=== PATIENT | female | born 1990 | race Hispanic/Latino ===

== ENCOUNTER 2019-06-27 23:09 | Observation (INO) | payer MEDICAID, SELFPAY ==
[2019-06-28 00:22] LABS: #Basophils 0.1 thou/uL (0.0-0.2); #Eosinphils 0.6 thou/uL (0.0-0.7); #Lymphocytes 2.9 thou/uL (1.20-3.40); #Monocytes 0.8 thou/uL (0.11-0.59); #Neutrophils 4.7 thou/uL (1.40-6.50); %Eosinophils 6.6 % (0.0-10.0); %Lymphocytes 32.3 % (21.0-51.0); %Monocytes 8.4 % (0.0-10.0); %Neutrophils 51.7 % (42.0-75.0); Hemoglobin 11.1 g/dL (12.0-16.0); Mean Corpuscular HGB CONC 33.8 g/dL (32.0-36.0); Mean Corpuscular Hemoglobin 29.7 pg (27.0-31.0); Mean Corpuscular Volume 87.8 fL (78.0-98.0); Mean Platelet Volume 7.3 fL (7.4-10.4); Platelet Count 252 thou/uL (130-400); RBC Distribution Width 11.4 % (11.5-14.5); Red Blood Cell (RBC) Count 3.73 mill/uL (4.20-5.40)
[2019-06-28] MEDS ORDERED: Ondansetron PF 4 MG/2 ML Vial ONE ×2 (00:43→13:19)
[2019-06-28] MEDS ORDERED: Fentanyl 100 MCG/2 ML VIAL ONE ×3 (00:43→02:39)
[2019-06-28 00:44] LABS: ALT (SGPT) 9 U/L (8-55); AST (SGOT) 9 U/L (5-34); Albumin 4.2 g/dL (3.5-5.0); Alkaline Phosphatase 69 U/L (40-110); Anion Gap 13 mmol/L (10-20); BUN (Urea Nitrogen) 11 mg/dL (7.0-18.7); Bilirubin, Total 0.3 mg/dL (0.2-1.2); Calc. Creatinine Clearance 0 mL/min (70-130); Calcium 9.2 mg/dL (7.8-10.44); Carbon Dioxide 24 mmol/L (22-29); Chloride 103 mmol/L (98-107); Estimated GFR-MDRD Greater than 90; Glucose 100 mg/dL (70-105); Lipase 11 U/L (8-78); Potassium 3.6 mmol/L (3.5-5.1); Protein, Total 7.2 g/dL (6.0-8.3); Sodium 136 mmol/L (136-145)
[2019-06-28] MEDS ORDERED: HYDROmorphone 0.5 MG/0.5 ML SYRINGE ONE (01:09)
[2019-06-28] MEDS ORDERED: Promethazine HCl 25 MG/ML VIAL ONE (01:09)
[2019-06-28] MEDS ORDERED: Midazolam HCl 2 mg/2 ml Vial ONE (01:10)
[2019-06-28] MEDS ORDERED: Promethazine HCl 25 MG/ML VIAL IM PRN ×2 (01:58→02:08)
[2019-06-28] MEDS ORDERED: Promethazine HCl 25 MG/ML VIAL SLOW IVP PRN (01:58)
[2019-06-28] MEDS ORDERED: HYDROmorphone 2 MG/ML VIAL SLOW IVP PRN (01:58)
[2019-06-28] MEDS ORDERED: Ondansetron HCl/PF 4 MG/2 ML Vial IVP PRN (01:58)
[2019-06-28] MEDS ORDERED: PACU-Morphine 4MG/ML VIAL SLOW IVP PRN (01:58)
[2019-06-28] MEDS ORDERED: HYDROmorphone 10 mg/100 ml CADD IVPB PRN (02:08)
[2019-06-28] MEDS ORDERED: Ondansetron PF 4 MG/2 ML Vial IVP PRN (02:08)
[2019-06-28] MEDS ORDERED: diphenhydrAMINE 25 MG CAP PO PRN (02:08)
[2019-06-28] MEDS ORDERED: Zolpidem Tartrate 5 MG TAB PO PRN (02:08)
[2019-06-28] MEDS ORDERED: Naloxone HCl 0.4 mg/ml Vial IV PRN (02:08)
[2019-06-28] MEDS ORDERED: diphenhydrAMINE 50 MG/ML VIAL IM PRN (02:08)
[2019-06-28] MEDS ORDERED: diphenhydrAMINE 50 MG/ML VIAL IVP PRN (02:08)
[2019-06-28] MEDS ORDERED: Communication Order-Pharmacy FS SCH (02:15)
--- NOTE | 2019-06-28 05:27 | OP ---
DATE OF PROCEDURE: 06/28/2019 PREOPERATIVE DIAGNOSIS: Suspected ectopic . POSTOPERATIVE DIAGNOSIS: Suspected ectopic with ruptured distal right fallopian tube. SURGEON: Pepe Rizzo MD OUTBOARD MOTOR ASSEMBLER: Tila Le DO, resident physician PROCEDURES: 1. Exploratory laparotomy. 2. Right distal salpingectomy. FINDINGS: 1. 200 to 300 mL hemoperitoneum. 2. Suspected ectopic s/p tubal with hemorrhagic distal right fallopian tube. ANESTHESIA: General endotracheal. ESTIMATED BLOOD LOSS: 300 mL. COMPLICATIONS: None. PROPHYLAXIS: Ancef 2 g IV prior to incision. BRIEF PATIENT DESCRIPTION: Ms. Noe is a 29-year-old G5, reportedly P5 with a last menstrual period, placing her exactly at 7 weeks. She came to the ER complaining of severe abdominal pain. She had been seen in Dr. Hand's office last week and told that no was seen and she was to return for followup. In the interim, she began to experience pain and came to the hospital as described above. Findings here demonstrated a quantitative beta-hCG of over 14,000 with an empty uterus, right adnexal mass, and fluid in the cul-de-sac. Due to the constellation of these findings, decision was made to proceed to surgery. TECHNIQUE IN DETAIL: After informed consent was obtained, the patient was taken to the operating room, where good general endotracheal anesthesia was applied and the patient was prepped and draped in the supine fashion. A transverse incision was made through a pre-existing scar and the abdomen was entered in layers. Upon entry into the peritoneal cavity, a copious amount of blood was seen. This was suctioned out and was approximately 200 to 300 mL in volume. A self-retaining retractor was placed and the bowel was packed away using wet lap packs. At this time, the pelvis was explored. The uterus was upper limits normal size in size, shape, and contour. The left adnexa showed fairly normal tubal anatomy and a normal ovary. On the right side, the ovary was small and the distal fallopian tube was edematous and was bleeding from its terminal end. Material removed from the cul-de-sac did appear to be possibly consistent with chorionic villi. Due to the bleeding from the distal fimbriated end, it was thought that this represented a tubal and as the tube was continuing to bleed, a distal salpingectomy was performed. A clamp was placed across the distal tube. The tube was excised and the tube was secured with 2 Adriana stitches of chromic suture. The pelvis was thoroughly irrigated and was noted to be dry. Wet lap packs and the self-retaining retractor were removed. The omentum was straightened and the fascia was closed with 2 sutures of 0 Vicryl brought laterally to the midline in an alternating running locking fashion. The subcutaneous tissue was thoroughly irrigated and made dry using Bovie coagulation technique. Skin was closed with metal michael. Sponge, lap, and needle counts were correct. The patient tolerated the procedure well and was taken to recovery room in good condition. Job ID: [id number] [facility]
[2019-06-28 05:28] LABS: #Lymphocytes 0.8 thou/uL (1.20-3.40); #Monocytes 0.2 thou/uL (0.11-0.59); #Neutrophils 15.9 thou/uL (1.40-6.50); %Basophils 0.1 % (0.0-1.0); %Eosinophils 0.1 % (0.0-10.0); %Lymphocytes 4.6 % (21.0-51.0); %Neutrophils 94.2 % (42.0-75.0); Hemoglobin 10.7 g/dL (12.0-16.0); Mean Corpuscular HGB CONC 33.8 g/dL (32.0-36.0); Mean Corpuscular Hemoglobin 29.1 pg (27.0-31.0); Mean Corpuscular Volume 86.2 fL (78.0-98.0); Mean Platelet Volume 7.6 fL (7.4-10.4); Platelet Count 241 thou/uL (130-400); RBC Distribution Width 11.3 % (11.5-14.5); Red Blood Cell (RBC) Count 3.66 mill/uL (4.20-5.40); White Blood Cell (WBC) Count 16.9 thou/uL (4.8-10.8)
--- NOTE | 2019-06-28 08:17 | ULT ---
PRELIMINARY REPORT/[facility]/EMERGENCY AFTER HOURS PROCEDURE: Addendum created by Reinier Mcclendon MD on 06/28/2019 1:07 AM Central Time ([place] & [place]) Findings discussed with SharerAlexandria MD at time of interpretation. Initial Report created on 06/28/2019 1:05 AM Central Time ([place] & [place]) PROCEDURE INFORMATION: Exam: US First Trimester, Transabdominal and US , Transvaginal Exam date and time: 06/27/2019 11:41 PM Clinical history: 29 years old, female; Other: Pelvic pain; Gestational age or lmp: 05/09/19; Pregnan t TECHNIQUE: Imaging protocol: Real-time transabdominal obstetrical ultrasound of the maternal pelvis and a first trimester , less than 14 weeks 0 days, with image documentation. Transvaginal imaging was us ed for better evaluation of the fetus and adnexa. COMPARISON: No relevant prior studies available. FINDINGS: GESTATION: Gestation: No visible intrauterine gestation. MATERNAL: Uterus: Endometrial stripe is normal in morphology but thickened at 2 cm in AP dimension. Cervix: Unremarkable. Right adnexa: 5.9 x 2.5 x 4.0 cm right adnexal mass, separate from the right ovary, with internal Doppler vascularity, suspicious for an ectopic . 2 cm corpus luteum cyst of the right ovary. Right ovary otherwise unremarkable with normal Doppler signal. Left adnexa: Left ovary is unremarkable with normal Doppler signal. Intraperitoneal: Moderate volume complex free fluid in the pelvis, suspicious for hemoperitoneum. IMPRESSION: 1. No visible intrauterine gestation. 2. Moderate volume complex free fluid in the pelvis, suspicious for hemoperitoneum. 3. 5.9 x 2.5 x 4.0 cm right adnexal mass, separate from the right ovary, with internal Doppler vascularity, suspicious for an ectopic . Thank you for allowing us to participate in the care of your patient. Dictated and Authenticated by: Reinier Mcclendon MD 06/28/2019 1:05 AM Central Time ([place] & [place]) FINAL REPORT PELVIC ULTRASOUND: Complex fluid in the pelvis suspicious for hemoperitoneum. Right adnexal mass suspicious for ectopic . I am in agreement with the preliminary report. POS: [facility]
[2019-06-28] MEDS ORDERED: Succinylcholine Chloride 20 MG/ML 10 ml SYRINGE FS ONE (13:19)
[2019-06-28] MEDS ORDERED: Dexamethasone 20 MG/5 ML VIAL ONE (13:19)
[2019-06-28] MEDS ORDERED: Lidocaine 1% PF 5 ML VIAL ONE (13:19)
[2019-06-28] MEDS ORDERED: Ketorolac Tromethamine 30 MG/ML VIAL ONE (13:19)
[2019-06-28] MEDS ORDERED: PHENYLEPHRINE-NS 100 MCG/ML 10 ML SYRINGE ONE (13:19)
[2019-06-28] MEDS ORDERED: PROPOFOL 200 MG/20 ML VIAL ONE (13:19)
[2019-06-28] MEDS: Ketorolac Tromethamine 30 MG/ML VIAL IVP SCH ×2 (17:27→19:23)
[2019-06-28] MEDS: Simethicone Chewable 80 MG TAB PO PRN (19:32)
[2019-06-28 19:40] VITALS: BMI 32.1
[2019-06-29] MEDS: Ketorolac Tromethamine 30 MG/ML VIAL IVP SCH (02:08)
[2019-06-29] MEDS ORDERED: HYDROcodone/Acetaminophen 5/325 mg Tablet PO PRN ×2 (08:33)
[2019-06-29] MEDS ORDERED: traMADol HCl 50 MG TAB PO PRN (08:35)
[2019-06-29] MEDS ORDERED: FLU VACC QS2019-20(6MOS UP)/PF 60 MCG/0.5 ML SYRINGE IM ONE (09:00)
--- NOTE | 2019-06-29 10:01 | PRG ---
DATE OF SERVICE: 06/29/2019 SUBJECTIVE: The patient is postoperative day 1, status post exploratory laparotomy for treatment of ectopic . Today, she reports that she is having decent pain control. She has been able to get up and void on her own. The patient has been using a Dilaudid [employer] pump for pain control up to this point. The patient also reports she is tolerating a liquid diet. OBJECTIVE: VITAL SIGNS: Blood pressure 118/62, temperature 98.5, pulse is 66, respiratory rate of 20, and saturating 100% on room air. GENERAL: She appears to be in no acute distress. She is alert, oriented, cooperative, and pleasant to interact with. HEAD: Normocephalic and atraumatic. SKIN: Incision is clean, dry, and intact with michael. ASSESSMENT AND PLAN: The patient is postop day 1, status post exploratory laparotomy for ectopic . The patient's postoperative course has been routine thus far. Anticipate discharge tomorrow. Today, we are converting her to oral pain medications and advancing diet. Job ID: [id number]
[2019-06-29] MEDS: Ibuprofen 800 MG TAB PO SCH ×2 (10:58→17:23)
[2019-06-29] MEDS: Simethicone Chewable 80 MG TAB PO PRN (10:58)
[2019-06-29] MEDS: traMADol HCl 50 MG TAB PO PRN ×2 (12:09→17:23)
[2019-06-29] MEDS ORDERED: Sodium Chloride 0.9% 10 ML ONE (13:07)
[2019-06-29] MEDS ORDERED: clonazePAM 0.5 MG TAB PO PRN (20:07)
[2019-06-30 00:51] LABS: Chlamydia by PCR Not Detected (NotDetected); GC by PCR Not Detected (NotDetected)
[2019-06-30] MEDS: Ibuprofen 800 MG TAB PO SCH (01:55)
[2019-06-30 05:16] VITALS: TEMP 98
[2019-06-30 11:54] VITALS: BP 117/68
[2019-06-30] MEDS: traMADol HCl 50 MG TAB PO PRN (13:37)
--- NOTE | 2019-06-30 15:19 | DIS ---
DATE OF ADMISSION: 06/28/2019 DATE OF DISCHARGE: 06/30/2019 PROCEDURE PERFORMED: Exploratory laparotomy with right salpingectomy. DIAGNOSES: 1. Ruptured right ectopic . 2. Acute blood loss anemia. HOSPITAL COURSE: The patient presented to the emergency department and was noted to have a ruptured ectopic . She was taken to the operating room by Dr. Rizzo, who performed an exploratory laparotomy with right distal salpingectomy. She was admitted to the floor for postoperative care, and on postoperative day 2, she was meeting all milestones for discharge. DIET: Regular. ACTIVITIES: Pelvic rest and lifting restrictions. FOLLOWUP: Follow up in 6 weeks at [facility]. DISCHARGE MEDICATIONS: 1. Ultram 50 mg one tablet p.o. q.4 hours p.r.n. pain. 2. Ibuprofen 600 mg q.6 hours p.r.n. pain. DISCHARGE INSTRUCTIONS: Call or return to the emergency department with concerns for infection, heavy bleeding or severe pain. Job ID: [id number]
== END 2019-06-30 14:31 | disposition home or self-care (01) ==
LOC: ERS 23:09 → 3SE 06-28 01:11 → SDC/OP 06-28 01:32 → 3SE 06-28 01:33
PROVIDERS: ADMIT Obstetrics & Gynecology; ATTEND Obstetrics & Gynecology
PROC: 10T20ZZ Resection of Products of Conception, Ectopic, Open Approach (ICD-10-PCS; principal; 2019-06-30)
DX: O00.101 Right tubal pregnancy without intrauterine pregnancy (principal); D62 Acute posthemorrhagic anemia; Z3A.01 Less than 8 weeks gestation of pregnancy
CPT/HCPCS: 36415; 76856; 80053; 83690; 84702; 85025; 86900; 86901; 87480; 87491; 87510; 87591; 87660; 88305; 96374; 96375; 96376; G0378; J1100; J1170; J1885; J2001; J2250; J2405; J2550; J2704; J3010